=== PATIENT | male | born 1975 | race Hispanic/Latino ===

== ENCOUNTER 2023-01-13 13:00 | Emergency (ER) | payer MEDICAID ==
[~2023-01-13] VITALS: Ht 177.8 cm; Wt 77.9 kg
[2023-01-13] MEDS ORDERED: SUBO2MIS SL (13:15)
[2023-01-13] MEDS ORDERED: SUBO4MIS SL (13:15)
[2023-01-13 13:38] LABS: APPEARANCE, URINE HAZY (CLEAR); BACTERIA, URINE AUTO NEGATIVE (NEGATIVE); BILIRUBIN, URINE AUTO NEGATIVE (NEGATIVE); BLOOD, URINE BLOOD NEGATIVE (NEGATIVE); COLOR, URINE YELLOW (YELLOW); GLUCOSE, URINE (UA) AUTO NEGATIVE (NEGATIVE); KETONE, URINE AUTO TRACE mg/dL (NEGATIVE); LEUKOCYTE ESTERASE, URINE AUTO NEGATIVE (NEGATIVE); MUCUS, URINE SMALL (NEGATIVE); NITRITE, URINE AUTO NEGATIVE (NEGATIVE); PROTEIN, URINE AUTO NEGATIVE (NEGATIVE); RBC, URINE AUTO 1 /HPF (0-3); SPECIFIC GRAVITY URINE AUTO 1.018 (1.002-1.035); SQUAMOUS EPITHELIAL CELL UR AU 0 /HPF (0-6); WBC, URINE AUTO 1 /HPF (0-3)
[2023-01-13] MEDS ORDERED: ACETAMINOPHEN TAB 650MG DOSE (2X325MG) PO ONE (14:10)
[2023-01-13 15:12] LABS: GC DNA AMPLIFICATION NEGATIVE (NEGATIVE)
[2023-01-13] MEDS ORDERED: KETOROLAC 30 MG/ML 1ML VIAL IV ONE (15:50)
[2023-01-13 16:01] LABS: BASO % 0.3 % (0.0-1.0); EOS % 0.5 % (0.0-3.0); HEMATOCRIT 39.2 % (42.0-52.0); HEMOGLOBIN 13.2 g/dl (13.5-17.5); LYMPH % 31.2 % (24.0-44.0); MEAN CORPUSCULAR HEMOGLOBIN 30.2 pg (27.0-33.0); MEAN CORPUSCULAR HGB CONC 33.7 g/dl (32.0-36.5); MEAN CORPUSCULAR VOLUME 89.7 fl (80.0-96.0); MONO # 0.4 10^3/uL (0.0-0.8); MONO % 5.9 % (2.0-8.0); NEUTROPHILS % 61.9 % (36.0-66.0); PLATELET COUNT, AUTOMATED 185 10^3/uL (150-450); RED BLOOD COUNT 4.37 10^6/uL (4.30-6.10); WHITE BLOOD COUNT 6.4 10^3/uL (4.0-10.0)
[2023-01-13 16:31] LABS: LIPASE 18 U/L (12-53)
[2023-01-13 16:33] LABS: ALBUMIN 3.8 G/DL (3.2-5.2); ALKALINE PHOSPHATASE 81 U/L (46-116); ALT/SGPT 17 U/L (7.0-40); AST/SGOT 22 U/L (<34); BILIRUBIN,DIRECT 0.3 MG/DL (<0.4); BILIRUBIN,TOTAL 0.7 MG/DL (0.3-1.2); BLOOD UREA NITROGEN 13 MG/DL (9-23); CALCIUM LEVEL 9.1 MG/DL (8.5-10.1); CARBON DIOXIDE LEVEL 29 MMOL/L (20-31); CHLORIDE LEVEL 103 MMOL/L (98-107); GLOMERULAR FILTRATION RATE > 60.0 (>60); GLUCOSE, FASTING 88 MG/DL (60-100); POTASSIUM SERUM 4.8 MMOL/L (3.5-5.1); SODIUM LEVEL 138 MMOL/L (136-145); TOTAL PROTEIN 7.5 G/DL (5.7-8.2)
[2023-01-13] MEDS ORDERED: ISOVUE-370 76% 100ML VIAL As Ordered ONE (16:47)
[2023-01-13] MEDS ORDERED: LEVO1TAB39 PO (18:37)
[2023-01-13] MEDS ORDERED: LevoFLOXacin 500 MG TABLET PO ONE (18:40)
[2023-01-13 18:52] VITALS: BP 168/90
== END 2023-01-13 18:53 | disposition home or self-care (01) ==
LOC: M ED 13:00
DX: N45.1 Epididymitis (principal); F11.10 Opioid abuse, uncomplicated; F17.200 Nicotine dependence, unspecified, uncomplicated; Z79.899 Other long term (current) drug therapy
CPT/HCPCS: 74177; 76870; 80048; 80076; 81001; 83690; 85025; 87810; 87850; 93976; 96374; 99284; J1885; Q9967

== ENCOUNTER 2023-01-15 06:37 | Emergency (ER) | payer MEDICAID ==
[~2023-01-15] VITALS: Ht 177.8 cm; Wt 74.7 kg
[~2023-01-15 06:37] MED LIST: LEVO1TAB39 PO; SUBO2MIS SL; SUBO4MIS SL
[2023-01-15] MEDS ORDERED: KETOROLAC 60MG 2ML VIAL IM ONE (07:40)
[2023-01-15] MEDS ORDERED: KETO10TAB PO (08:46)
[2023-01-15 09:17] VITALS: BP 101/73
== END 2023-01-15 09:20 | disposition home or self-care (01) ==
LOC: M ED 06:37
DX: N45.1 Epididymitis (principal); N50.819 Testicular pain, unspecified; Z79.899 Other long term (current) drug therapy
CPT/HCPCS: 96372; 99284; J1885

== ENCOUNTER 2023-01-17 16:23 | Emergency (ER) | payer MEDICAID ==
[~2023-01-17] VITALS: Ht 177.8 cm; Wt 76.0 kg
[~2023-01-17 16:23] MED LIST changes: +KETO10TAB PO
[2023-01-17 18:10] LABS: BASO % 0.3 % (0.0-1.0); EOS # 0.1 10^3/uL (0.0-0.5); EOS % 1.3 % (0.0-3.0); HEMATOCRIT 39.1 % (42.0-52.0); HEMOGLOBIN 13.3 g/dl (13.5-17.5); LYMPH # 1.9 10^3/uL (1.5-5.0); LYMPH % 26.8 % (24.0-44.0); MEAN CORPUSCULAR HEMOGLOBIN 30.2 pg (27.0-33.0); MEAN CORPUSCULAR VOLUME 88.7 fl (80.0-96.0); MONO # 0.5 10^3/uL (0.0-0.8); NEUTROPHILS # 4.6 10^3/uL (1.5-8.5); NEUTROPHILS % 64.3 % (36.0-66.0); PLATELET COUNT, AUTOMATED 189 10^3/uL (150-450); RED BLOOD COUNT 4.41 10^6/uL (4.30-6.10); WHITE BLOOD COUNT 7.1 10^3/uL (4.0-10.0)
[2023-01-17 18:33] LABS: LIPASE 19 U/L (12-53)
[2023-01-17 18:35] LABS: ALKALINE PHOSPHATASE 77 U/L (46-116); ALT/SGPT 16 U/L (7.0-40); AST/SGOT 21 U/L (<34); BILIRUBIN,DIRECT 0.2 MG/DL (<0.4); BILIRUBIN,TOTAL 0.4 MG/DL (0.3-1.2); BLOOD UREA NITROGEN 11 MG/DL (9-23); CALCIUM LEVEL 9.2 MG/DL (8.5-10.1); CARBON DIOXIDE LEVEL 28 MMOL/L (20-31); CHLORIDE LEVEL 104 MMOL/L (98-107); CREATININE FOR GFR 0.95 MG/DL (0.70-1.30); GLOMERULAR FILTRATION RATE > 60.0 (>60); GLUCOSE, FASTING 103 MG/DL (60-100); SODIUM LEVEL 136 MMOL/L (136-145); TOTAL PROTEIN 7.5 G/DL (5.7-8.2)
[2023-01-17] MEDS ORDERED: NS 1,000 ML IV ONE (19:10)
[2023-01-17] MEDS ORDERED: METOCLOPRAMIDE INJ 10MG/2ML VIAL IV ONE (19:10)
[2023-01-17] MEDS ORDERED: FAMOTIDINE 20MG/2ML VIAL IVP ONE (19:10)
[2023-01-17] MEDS ORDERED: REGL10TA6 PO (21:01)
[2023-01-17] MEDS ORDERED: PEPC1TAB5 PO (21:01)
[2023-01-17 21:09] VITALS: BP 140/78
== END 2023-01-17 21:10 | disposition home or self-care (01) ==
LOC: M ED 16:23
DX: R11.2 Nausea with vomiting, unspecified (principal); T36.95XA Adverse effect of unspecified systemic antibiotic, initial encounter; F17.200 Nicotine dependence, unspecified, uncomplicated; Z79.899 Other long term (current) drug therapy
CPT/HCPCS: 36415; 80048; 80076; 81001; 83690; 85025; 96374; 96375; 99284; J2765; S0028

== ENCOUNTER 2023-01-25 21:11 | Emergency (ER) | payer MEDICAID, OTHER, SELFPAY ==
[~2023-01-25] VITALS: Ht 177.8 cm; Wt 78.4 kg
[~2023-01-25 21:11] MED LIST changes: +PEPC1TAB5 PO; +REGL10TA6 PO
[2023-01-25 21:13] VITALS: BP 160/91
[2023-01-25 23:13] LABS: GC DNA AMPLIFICATION NEGATIVE (NEGATIVE)
[2023-01-26] MEDS ORDERED: cefTRIAXone SOD 1 GM in D5W MINI-BAG PLUS 50 ML IV ONE (00:40)
[2023-01-26] MEDS ORDERED: DOXYCYCLINE HYCLATE 100MG TABLET PO ONE (00:40)
[2023-01-26] MEDS ORDERED: DOXY-443 PO (00:44)
[2023-01-26] MEDS ORDERED: cefTRIAXone 500MG VIAL IM ONE (00:50)
[2023-01-26] MEDS ORDERED: LIDOCAINE 1% SDV 5ML VIAL DILUENT ONE (00:50)
== END 2023-01-26 01:12 | disposition home or self-care (01) ==
LOC: M ED 21:11
DX: N45.1 Epididymitis (principal); R36.9 Urethral discharge, unspecified; F17.200 Nicotine dependence, unspecified, uncomplicated; Z79.899 Other long term (current) drug therapy
CPT/HCPCS: 76870; 81001; 87661; 87810; 87850; 93976; 96372; 96374; 99282; J0696

== ENCOUNTER → 2023-03-12 | Outpatient (REF) | payer OTHER ==
[~2023-03-12] MED LIST changes: +DOXY-443 PO
== END ==
LOC: M LABSMT 16:01
PROVIDERS: ATTEND Urology
DX: Z12.5 Encounter for screening for malignant neoplasm of prostate (principal); Z53.9 Procedure and treatment not carried out, unspecified reason

== ENCOUNTER → 2023-04-16 | Outpatient (REF) | payer OTHER ==
[2023-04-16 15:30] LABS: THYROID STIMULATING HORMONE 2.548 uIU/ML (0.55-4.78)
[2023-04-16 15:31] LABS: ALBUMIN 4.1 G/DL (3.2-5.2); ALKALINE PHOSPHATASE 64 U/L (46-116); ALT/SGPT 27 U/L (7.0-40); AST/SGOT 14 U/L (<34); BILIRUBIN,TOTAL 0.4 MG/DL (0.3-1.2); BLOOD UREA NITROGEN 14 MG/DL (9-23); CARBON DIOXIDE LEVEL 30 MMOL/L (20-31); CHLORIDE LEVEL 102 MMOL/L (98-107); CREATININE FOR GFR 0.89 MG/DL (0.70-1.30); FREE T4 1.06 NG/DL (0.89-1.76); GLOMERULAR FILTRATION RATE > 60.0 (>60); GLUCOSE, FASTING 93 MG/DL (60-100); POTASSIUM SERUM 4.1 MMOL/L (3.5-5.1); SODIUM LEVEL 140 MMOL/L (136-145); TOTAL PROTEIN 7.3 G/DL (5.7-8.2)
[2023-04-16 15:55] LABS: HIV 1&2 SCREEN NEGATIVE (NEGATIVE)
[2023-04-16 16:03] LABS: HEPATITIS C VIRUS ABY INDEX 0.14 INDEX (<0.8)
[2023-04-16 16:16] LABS: HEMOGLOBIN A1c 5.7 % (4.0-6.0)
== END ==
LOC: M LAB REF 12:23
PROVIDERS: ATTEND Family Medicine Addiction Medicine
DX: N41.1 Chronic prostatitis (principal); Z68.25 Body mass index [BMI] 25.0-25.9, adult

== ENCOUNTER 2024-06-16 07:12 | Emergency (ER) | payer MEDICAID, OTHER ==
[~2024-06-16] VITALS: Ht 177.8 cm; Wt 83.5 kg
[~2024-06-16 07:12] MED LIST changes: +DOXY-441 PO; -DOXY-443 PO
[2024-06-16] MEDS ORDERED: TRAZ-189 PO (07:24)
[2024-06-16] MEDS ORDERED: ZYPR15TA PO (07:24)
[2024-06-16 09:30] LABS: Trichomonas vaginalis (AMP) NOT DETECTED (NEGATIVE)
[2024-06-16 09:54] LABS: GC DNA AMPLIFICATION NEGATIVE (NEGATIVE)
[2024-06-16 10:26] VITALS: BP 166/95; TEMP 97.9; O2SAT 98
[2024-06-16 10:45] LABS: HIV 1&2 SCREEN NEGATIVE (NEGATIVE)
== END 2024-06-16 10:36 | disposition home or self-care (01) ==
LOC: M ED 07:12
DX: Z20.2 Contact with and (suspected) exposure to infections with a predominantly sexual mode of transmission (principal); F17.210 Nicotine dependence, cigarettes, uncomplicated; F15.10 Other stimulant abuse, uncomplicated; F10.10 Alcohol abuse, uncomplicated; Z79.899 Other long term (current) drug therapy

== ENCOUNTER 2025-05-29 23:01 | Inpatient (IN) | payer OTHER, SELFPAY ==
[~2025-05-29] VITALS: Ht 177.8 cm; Wt 90.0 kg
[~2025-05-29 23:01] MED LIST changes: +TRAZ-189 PO; +ZYPR15TA PO
[2025-05-29] MEDS ORDERED: SUBO8MIS SL (23:09)
[2025-05-30 00:17] LABS: PLATELET COUNT, AUTOMATED 205 10^3/uL (150-450)
[2025-05-30 00:30] LABS: BARBITURATES URINE NEGATIVE (NEGATIVE); BENZODIAZEPINES URINE NEGATIVE (NEGATIVE); CANNABINOIDS URINE NEGATIVE (NEGATIVE); METHADONE URINE NEGATIVE (NEGATIVE); PHENCYCLIDINE URINE NEGATIVE (NEGATIVE)
[2025-05-30 00:37] LABS: AMPHETAMINES LEVEL URINE POSITIVE (NEGATIVE); COCAINE METABOLITE URINE POSITIVE (NEGATIVE); OPIATES URINE POSITIVE (NEGATIVE)
[2025-05-30 01:37] LABS: ALT/SGPT 34 U/L (7.0-40); AST/SGOT 30 U/L (<34); CALCIUM LEVEL 8.5 MG/DL (8.5-10.1); CARBON DIOXIDE LEVEL 30 MMOL/L (20-31); CHLORIDE LEVEL 101 MMOL/L (98-107); CREATININE FOR GFR 1.11 MG/DL (0.70-1.30); GLOMERULAR FILTRATION RATE 79.9 (>56); POTASSIUM SERUM 3.7 MMOL/L (3.5-5.1); SALICYLATE LEVEL < 3.0 MG/DL (<30); SODIUM LEVEL 141 MMOL/L (136-145)
[2025-05-30 01:50] LABS: ETHYL ALCOHOL (ETHANOL) < 0.003 % (0.000-0.010)
[2025-05-30] MEDS ORDERED: traZODone 50 MG TAB PO PRN (02:55)
[2025-05-30] MEDS ORDERED: MAALOX 30 ML SUSP *UDC PO PRN (02:55)
[2025-05-30] MEDS ORDERED: cloNIDine HCL 0.3 MG/24 HR PATCH TOP SCH (02:55)
[2025-05-30] MEDS ORDERED: MOM 30 ML SUSPENSION UDC PO PRN (02:55)
[2025-05-30] MEDS ORDERED: ONDANSETRON 4MG ORAL DISINTEGRATING TAB PO PRN (02:55)
[2025-05-30] MEDS ORDERED: IBUPROFEN 400 MG TAB PO PRN (02:55)
[2025-05-30] MEDS ORDERED: ACETAMINOPHEN 325 MG TAB PO PRN (02:55)
[2025-05-30 04:59] VITALS: BP 143/86; TEMP 97.1; O2SAT 96
[2025-05-30] MEDS ORDERED: BUPRENORPHINE/NALOXONE 2-0.5MG SUBLINGUAL TABLET(SUBOXONE) SL SCH (09:00)
[2025-05-30] MEDS ORDERED: MULTIVITAMINS/MINERALS THERAP 1 TAB PO SCH (09:00)
[2025-05-30] MEDS ORDERED: THIAMINE 100 MG TAB PO SCH (09:00)
[2025-05-30] MEDS: FOLIC ACID 1 MG TAB PO SCH (09:27)
[2025-05-30] MEDS ORDERED: CLON-412 PO (12:41)
[2025-05-30] MEDS ORDERED: FLUO-365 PO (12:41)
[2025-05-30] MEDS ORDERED: HOME MED LIST COMPLETE! XX SCH (12:45)
[2025-05-30] MEDS: NICOTINE 14 MG/24 HR TRANSDERMAL TD SCH (14:52)
[2025-05-30 15:52] VITALS: BP 123/78; TEMP 98.3; O2SAT 97
[2025-05-30 16:50] VITALS: BP 128/88
[2025-05-30] MEDS: TAMSULOSIN 0.4 MG CAP PO SCH (20:37)
[2025-05-30] MEDS: traZODone 50 MG TAB PO SCH (20:37)
[2025-05-30] MEDS: OLANZapine 5 MG TAB PO SCH (20:37)
[2025-05-31 06:33] VITALS: BP 99/50; TEMP 98; O2SAT 98
[2025-05-31 08:08] LABS: CHOLESTEROL LEVEL 168.0 MG/DL (<200); CHOLESTEROL RISK RATIO 3.5 (<5); LDL CHOLESTEROL 80.4 MG/DL (<100); NON-HDL-C 120.0 MG/DL; TRIGLYCERIDES LEVEL 198.0 MG/DL (<150)
[2025-05-31 09:31] VITALS: BP 96/52
[2025-05-31 12:48] VITALS: BP 92/58
[2025-05-31 15:21] VITALS: BP 120/71; TEMP 97.5; O2SAT 98
[2025-05-31] MEDS: BUPRENORPHINE/NALOXONE 8-2MG SUBLINGUAL TABLET(SUBOXONE) SL SCH (20:31)
[2025-06-01 06:42] VITALS: BP 148/80; TEMP 97.5; O2SAT 95
[2025-06-01] MEDS: FLUoxetine 20 MG CAP PO SCH (08:45)
[2025-06-01 15:14] VITALS: BP 130/68; TEMP 97.2; O2SAT 96
[2025-06-01] MEDS ORDERED: traZODone 100 MG TAB PO PRN (21:00)
[2025-06-01] MEDS ORDERED: traZODone 50 MG TAB PO PRN (21:00)
[2025-06-02 06:52] VITALS: BP 144/88; TEMP 97.2; O2SAT 99
[2025-06-02] MEDS ORDERED: CLON-412 PO (09:21)
[2025-06-02] MEDS ORDERED: TRAZ-257 PO (09:21)
[2025-06-02] MEDS ORDERED: TAMS-18 PO (09:21)
[2025-06-02] MEDS ORDERED: NICO14PA TD (09:21)
[2025-06-02] MEDS ORDERED: FLUO-365 PO (09:21)
[2025-06-02 10:20] VITALS: BP 180/118; TEMP 97.5; O2SAT 95
[2025-06-02 10:40] VITALS: BP 158/78; TEMP 97.9; O2SAT 99
== END 2025-06-02 11:22 | disposition home or self-care (01) | DRG 751 ==
LOC: M ED 23:01 → M ED INP 05-30 02:52 → M PSY 05-30 04:28
PROVIDERS: ADMIT Student in an Organized Health Care Education/Training Program; ATTEND Psychiatry & Neurology Psychiatry
DX: F33.1 Major depressive disorder, recurrent, moderate (principal); R45.851 Suicidal ideations; F41.9 Anxiety disorder, unspecified; R35.0 Frequency of micturition; F10.20 Alcohol dependence, uncomplicated; F17.210 Nicotine dependence, cigarettes, uncomplicated; F14.10 Cocaine abuse, uncomplicated; F15.10 Other stimulant abuse, uncomplicated; N40.1 Benign prostatic hyperplasia with lower urinary tract symptoms; F12.10 Cannabis abuse, uncomplicated; F43.20 Adjustment disorder, unspecified; Z63.0 Problems in relationship with spouse or partner; Z81.8 Family history of other mental and behavioral disorders; Z56.0 Unemployment, unspecified; Z62.810 Personal history of physical and sexual abuse in childhood; Z79.899 Other long term (current) drug therapy